=== PATIENT | female | born 1965 | race Caucasian/White ===

== ENCOUNTER → 2019-07-06 | Outpatient (CLI) | payer BC ==
[~2019-07-06] MED LIST: CLID1CAP PO; ESOM40CA54 PO; GADODIAMIDE 10 MMOL/20 ML VIAL IV ONE; IBUP-1889 PO; IMIP10TA5 PO; POLY119P17 PO
== END | disposition home or self-care (01) ==
LOC: RAH 13:04
PROVIDERS: ATTEND Obstetrics & Gynecology
DX: N73.8 Other specified female pelvic inflammatory diseases (principal); Z90.710 Acquired absence of both cervix and uterus
CPT/HCPCS: 72197; 74183; A9579